=== PATIENT | female | born 1965 | race Caucasian/White ===

== ENCOUNTER 2020-02-19 06:41 | Outpatient (CLI) | payer OTHER, SELFPAY ==
[2020-02-19 08:03] LABS: Free T4 Free Thyroxine 1.43 ng/mL (0.78-2.19)
[2020-02-19 08:58] LABS: Thyroid Stimulating Hormone 0.175 uIU/mL (0.465-4.680); Total Triiodothyronine (T3) 1.04 NG/ML (0.97-1.69)
[2020-02-22 11:04] LABS: Vitamin D 1,25 (OH)2 Total 72 pg/mL (18-72); Vitamin D2 1,25 (OH)2 26 pg/mL; Vitamin D3 1,25 (OH)2 46 pg/mL
== END 2020-02-19 06:42 | disposition home or self-care (01) ==
PROVIDERS: PCP Family Medicine; Visit Provider Family Medicine
DX: E04.9 Nontoxic goiter, unspecified (principal); E55.9 Vitamin D deficiency, unspecified; E03.9 Hypothyroidism, unspecified
CPT/HCPCS: 36415; 82652; 84439; 84443; 84480

== ENCOUNTER 2020-11-28 07:14 | Outpatient (CLI) | payer OTHER, SELFPAY ==
[2020-11-28 07:37] LABS: Basophils Percent Auto 0.5 % (0.2-1.2); Eosinophils Absolute Auto 0.1 K/mm3 (0-0.3); Eosinophils Percent Auto 0.9 % (0-4.4); Hematocrit 42.1 % (37.0-47.0); Hemoglobin 13.8 g/dL (12.0-15.0); Immature Granulocyte Absolute 0.02 K/mm3 (0.00-0.031); Immature Granulocyte Percent A 0.3 % (0-0.5); Lymphocytes Absolute Auto 3.54 K/mm3 (0.9-3.2); Lymphocytes Percent Auto 46.8 % (18.3-44.2); Mean Corpuscular HGB Conc 32.8 g/dl (32-36); Mean Corpuscular Hemoglobin 30.1 pg (26-34); Mean Corpuscular Volume 91.9 fl (80-100); Mean Platelet Volume 8.8 fl (7.4-10.4); Monocytes Absolute Auto 0.6 K/mm3 (0.1-0.6); Monocytes Percent Auto 8.1 % (2.6-8.5); Neutrophils Absolute Auto 3.3 K/mm3 (1.3-6.7); Neutrophils Percent Auto 43.4 % (45.5-73.1); Platelet Count Result 268 k/mm3 (150-375); Red Blood Count 4.58 M/mm3 (4.2-5.4); Red Cell Distribution Width 12.8 % (11.5-14.5); White Blood Count 7.6 K/mm3 (4.5-10.0)
[2020-11-28 07:45] LABS: Alanine Aminotransferase 10 U/L (4-35); Albumin Level 4.2 g/dL (3.5-5.1); Alkaline Phosphatase 58 U/L (38-126); Anion Gap 3 mmol/L (8-16); Aspartate Amino Transferase 21 U/L (14-36); Bilirubin,Total 0.5 mg/dL (0.2-1.3); Blood Urea Nitrogen 14 mg/dL (7-17); Calcium 9.4 mg/dL (8.4-10.2); Carbon Dioxide 33 mmol/L (22-30); Chloride 102 mmol/L (98-107); Cholesterol 167 mg/dL (0-200); Estimated Glomerular Filt Rate > 60; Glucose 104 mg/dL (65-105); HDL Direct 67 mg/dL; Potassium 4.2 mmol/L (3.4-5.0); Sodium 138 mmol/L (137-145); Triglycerides 73 mg/dL (<150)
[2020-11-28 07:56] LABS: LDL Cholesterol Direct 78 mg/dL
[2020-11-28 08:15] LABS: Thyroid Stimulating Hormone 0.389 uIU/mL (0.465-4.680); Total Triiodothyronine (T3) 0.99 NG/ML (0.97-1.69)
[2020-11-28 08:20] LABS: Free T4 Free Thyroxine 1.05 ng/mL (0.78-2.19)
[2020-11-30 23:33] LABS: Vitamin D 1,25 (OH)2 Total 44 pg/mL (18-72); Vitamin D2 1,25 (OH)2 <8 pg/mL; Vitamin D3 1,25 (OH)2 44 pg/mL
== END 2020-11-28 07:15 | disposition home or self-care (01) ==
PROVIDERS: PCP Family Medicine; Visit Provider Family Medicine
DX: Z13.220 Encounter for screening for lipoid disorders (principal); E03.9 Hypothyroidism, unspecified; E55.9 Vitamin D deficiency, unspecified; Z00.00 Encounter for general adult medical examination without abnormal findings
CPT/HCPCS: 36415; 80053; 80061; 82652; 84439; 84443; 84480; 85025

== ENCOUNTER 2020-12-27 17:12 | Outpatient (CLI) | payer OTHER, SELFPAY ==
--- NOTE | ~2020-12-27 | MM_ITS ---
EXAMINATION: MM screening jose BI w anthony HISTORY: Screening TECHNIQUE: Craniocaudal and mediolateral oblique 3-D tomosynthesis images were obtained and synthetic 2-D images were generated. CAD analysis was submitted and interpreted. COMPARISON: Comparison to multiple prior studies sequentially, with oldest reviewed study dated 11/2010. BREAST PARENCHYMAL COMPOSITION: Breast composed of scattered areas of fibroglandular density FINDINGS: There are bilateral breast asymmetries medial aspect of both breasts which were not definit waylon seen on prior examinations. There are no suspicious calcifications. IMPRESSION: 1. Bilateral breast asymmetries. 2. Additional mammographic views and possible breast ultrasound are recommended. BI-RADS Category 0: Incomplete: Needs additional imaging evaluation. Reviewed, dictated and finalized at location A. IMPRESSION: 1. Bilateral breast asymmetries. 2. Additional mammographic views and possible breast ultrasound are recommended . BI-RADS Category 0: Incomplete: Needs additional imaging evaluation.
== END 2020-12-27 17:13 | disposition home or self-care (01) ==
LOC: ANHIMG 17:13
PROVIDERS: PCP Family Medicine; Visit Provider Family Medicine
DX: Z12.31 Encounter for screening mammogram for malignant neoplasm of breast (principal); R92.8 Other abnormal and inconclusive findings on diagnostic imaging of breast
CPT/HCPCS: 77063; 77067

== ENCOUNTER 2021-01-19 11:21 | Outpatient (CLI) | payer OTHER, SELFPAY ==
--- NOTE | ~2021-01-19 | MMUS_ITS ---
EXAMINATION: MM diagnostic mammo BI, US breast BI complete HISTORY: Bilateral mammographic asymmetries on 12/27/2020 screening mammogram examination TECHNIQUE: Additional 3-D tomosynthesis images of both breasts were performed and synthetic 2-D image s were generated. CAD analysis was submitted and interpreted. High resolution bilateral complete dennys st ultrasound was performed. COMPARISON: 12/27/2020 bilateral digital screening mammogram FINDINGS: MAMMOGRAPHIC FINDINGS: No definite suspicious reproducible mass or any architectural distortion, malignant calcification, sk in thickening or retraction is evident. ULTRASOUND: There is no evidence of focal abnormal solid or cystic lesion or suspicious shadowing of either breas t. IMPRESSION: 1. No mammographic evidence of malignancy 2. Routine mammographic screening is recommended. BI-RADS Category 1: Negative Reviewed, dictated and finalized at location A. IMPRESSION: 1. No mammographic evidence of malignancy 2. Routine mammographic screening is recommended. BI-RADS Category 1: Negative
== END 2021-01-19 11:22 | disposition home or self-care (01) ==
LOC: ANHIMG 11:23
PROVIDERS: PCP Family Medicine; Visit Provider Physician Assistant
DX: R92.8 Other abnormal and inconclusive findings on diagnostic imaging of breast (principal)
CPT/HCPCS: 76641; 77066

== ENCOUNTER 2021-02-23 09:39 | Outpatient (CLI) | payer OTHER, SELFPAY ==
[2021-02-23 10:57] LABS: Total Triiodothyronine (T3) 0.78 NG/ML (0.97-1.69)
== END 2021-02-23 09:40 | disposition home or self-care (01) ==
PROVIDERS: PCP Family Medicine; Visit Provider Family Medicine
DX: E03.9 Hypothyroidism, unspecified (principal)
CPT/HCPCS: 36415; 84439; 84443; 84480

== ENCOUNTER 2022-02-16 06:59 | Outpatient (CLI) | payer OTHER, SELFPAY ==
[2022-02-16 07:22] LABS: Basophils Percent Auto 0.3 % (0.2-1.2); Eosinophils Absolute Auto 0.1 K/mm3 (0-0.3); Hematocrit 40.5 % (37.0-47.0); Hemoglobin 13.4 g/dL (12.0-15.0); Immature Granulocyte Absolute 0.02 K/mm3 (0.00-0.031); Immature Granulocyte Percent A 0.3 % (0-0.5); Lymphocytes Absolute Auto 2.91 K/mm3 (0.9-3.2); Lymphocytes Percent Auto 47.3 % (18.3-44.2); Mean Corpuscular HGB Conc 33.1 g/dl (32-36); Mean Corpuscular Hemoglobin 30.5 pg (26-34); Mean Platelet Volume 9.1 fl (7.4-10.4); Monocytes Absolute Auto 0.6 K/mm3 (0.1-0.6); Monocytes Percent Auto 9.1 % (2.6-8.5); Neutrophils Absolute Auto 2.6 K/mm3 (1.3-6.7); Platelet Count Result 259 k/mm3 (150-375); Red Cell Distribution Width 12.9 % (11.5-14.5); White Blood Count 6.2 K/mm3 (4.5-10.0)
[2022-02-16 07:32] LABS: Alanine Aminotransferase 10 U/L (4-35); Albumin Level 4.2 g/dL (3.5-5.1); Alkaline Phosphatase 57 U/L (38-126); Anion Gap 4 mmol/L (8-16); Aspartate Amino Transferase 21 U/L (14-36); Bilirubin,Total 0.6 mg/dL (0.2-1.3); Blood Urea Nitrogen 12 mg/dL (7-17); Calcium 8.8 mg/dL (8.4-10.2); Carbon Dioxide 30 mmol/L (22-30); Chloride 105 mmol/L (98-107); Cholesterol 171 mg/dL (0-200); Estimated Glomerular Filt Rate > 60; Glucose 97 mg/dL (65-110); HDL Direct 67 mg/dL; Potassium 4.2 mmol/L (3.4-5.0); Sodium 139 mmol/L (137-145); Triglycerides 75 mg/dL (<150)
[2022-02-16 07:43] LABS: LDL Cholesterol Direct 72 mg/dL
[2022-02-16 08:03] LABS: Thyroid Stimulating Hormone 0.129 uIU/mL (0.465-4.680); Total Triiodothyronine (T3) 0.98 NG/ML (0.97-1.69)
[2022-02-16 08:05] LABS: Erythrocyte Sedimentation Rate 13 mm/hr (0-20)
[2022-02-16 08:19] LABS: Free T4 Free Thyroxine 0.99 ng/mL (0.78-2.19)
[2022-02-20 15:00] LABS: Vitamin D 1,25 (OH)2 Total 40 pg/mL (18-72); Vitamin D2 1,25 (OH)2 <8 pg/mL; Vitamin D3 1,25 (OH)2 40 pg/mL
== END 2022-02-16 07:00 | disposition home or self-care (01) ==
LOC: ANHLAB 07:01
PROVIDERS: PCP Family Medicine; Visit Provider Family Medicine
DX: Z00.00 Encounter for general adult medical examination without abnormal findings (principal); E55.9 Vitamin D deficiency, unspecified; E78.2 Mixed hyperlipidemia; E03.9 Hypothyroidism, unspecified; G44.009 Cluster headache syndrome, unspecified, not intractable
CPT/HCPCS: 36415; 80053; 80061; 82652; 84439; 84443; 84480; 85025; 85652

== ENCOUNTER 2022-06-11 07:45 | Outpatient (CLI) | payer OTHER, SELFPAY ==
--- NOTE | ~2022-06-11 | XR_ITS ---
EXAMINATION: XR foot LT 2V INDICATION: Left foot pain TECHNIQUE: Two views of the left foot are obtained. COMPARISON: None available FINDINGS: There is mild osseous irregularity at the lateral base of the fifth metatarsal. Heterotopic ossification of unclear origin projects lateral to the cuboid. There is moderate osteoarthritis of m ultiple interphalangeal joints. Dorsal and plantar calcaneal enthesophytes are noted. The soft tissue s are unremarkable. There is mild osteoarthritis of the midfoot. IMPRESSION: 1. Mild osseous irregularity at the lateral base of the fifth metatarsal and heterotopic ossification projecting lateral to the cuboid of unclear origin. Findings could reflect subacute fractures. Reviewed, dictated and finalized at location A. IMPRESSION: 1. Mild osseous irregularity at the lateral base of the fifth metatarsal and he terotopic ossification projecting lateral to the cuboid of unclear origin. Find ings could reflect subacute fractures.
== END 2022-06-11 07:46 | disposition home or self-care (01) ==
LOC: ANHIMG 07:48
PROVIDERS: PCP Family Medicine; Visit Provider Family Medicine
DX: M79.672 Pain in left foot (principal); M89.9 Disorder of bone, unspecified
CPT/HCPCS: 73620

== ENCOUNTER 2022-06-21 06:47 | Outpatient (CLI) | payer OTHER, SELFPAY ==
--- NOTE | ~2022-06-21 | MR_ITS ---
EXAMINATION: MR foot LT wo con DATE: 06/21/2022 07:29 INDICATION: Lateral left foot pain TECHNIQUE: Magnetic resonance imaging (MRI) of the foot excluding the toes was performed without intr avenous contrast. Sequences included sagittal T1-weighted FSE, sagittal fluid sensitive FSE STIR, cor onal PD-weighted FS FSE, coronal T1-weighted FSE, axial PD-weighted FS FSE, and axial PD-weighted FSE . COMPARISON: Left foot radiographs dated 06/11/2022 FINDINGS: Medial ankle ligaments: Deep and superficial deltoid ligaments as well as the spring ligament are normal. Lateral ankle ligaments: The anterior and posterior inferior tibiofibular ligaments are normal. Attenuation of the anterior ta lofibular ligament without surrounding edema consistent with sequela of chronic sprain. The calcaneof ibular and posterior talofibular ligaments are normal. There are erosions versus subarticular cystic changes at the posterior margin of the talofibular articulation and footplates of the normal-appearin g posterior talofibular ligament. The calcaneofibular ligament is normal. Tendons: Small Achilles calcaneal enthesophyte at the calcaneal insertion of the normal Achilles tendon. The p eroneus longus and brevis tendons are normal. Normal osseous peronei accounting for the small ossific densities noted lateral to the cuboid on the prior radiographs. Accessory peroneus quartus muscle be lly with direct muscular attachment along the lateral margin of the calcaneus posterior to the perone al trochlea. The tibialis anterior and extensor hallucis longus and extensor digitorum longus tendons are normal. The tibialis posterior, flexor digitorum longus and flexor hallucis longus tendons are n ormal. Plantar fascia: Thickening and mild increased signal of the proximal plantar aponeurosis with moderate-sized plantar calcaneal spur at the calcaneal origin but without without surrounding edema consistent with chronic enthesopathy without tear. Bones/other: Bone alignment is normal. No stress injury, fracture or pathologic marrow replacing process. Moderate osteoarthritis at the second tarsal metatarsal joint with mild subarticular edema-like signal change along the dorsal margin of both articular surfaces. Additional mild osteoarthritis at the ankle and at a few of the remaining tarsal metatarsal joints. Additional small enthesophytes at the lateral mar gin of the fifth metatarsal extending from the cortical irregularity noted on the prior radiographs. Lisfranc ligament complex is normal. Fluid: Physiologic amount fluid in the joint spaces. No tenosynovitis, bursitis or other abnormal fluid ros ections. IMPRESSION: 1. Polyarticular osteoarthritis, moderate at the second tarsal metatarsal joint and mild at the ankle and a few additional tarsal metatarsal joints. No acute osseous abnormality. 2. Attenuation of the anterior talofibular ligament without surrounding edema consistent with likely sequela of chronic sprain/partial tear. 3. Nonspecific mild cystic change versus chronic erosions at the posterior tibial surfaces of the gaby ofibular articulation and the footplates of the posterior talofibular ligament which could be related to either osteoarthritis, inflammatory process such as gout or sequela of old sprain. 4. Chronic plantar bursitis with moderate-sized plantar calcaneal spur. Reviewed, dictated and finalized at location A. IMPRESSION: 1. Polyarticular osteoarthritis, moderate at the second tarsal metatarsal joint and mild at the ankle and a few additional tarsal metatarsal joints. No acute osseous abnormality. 2. Attenuation of the anterior talofibular ligament without surrounding edema c onsistent with likely sequela of chronic sprain/partial tear. 3. Non
== END 2022-06-21 06:48 | disposition home or self-care (01) ==
PROVIDERS: PCP Family Medicine; Visit Provider Family Medicine
DX: R93.7 Abnormal findings on diagnostic imaging of other parts of musculoskeletal system (principal); M19.072 Primary osteoarthritis, left ankle and foot; M89.9 Disorder of bone, unspecified; M71.572 Other bursitis, not elsewhere classified, left ankle and foot; M77.32 Calcaneal spur, left foot
CPT/HCPCS: 73718

== ENCOUNTER 2022-06-28 09:13 | Outpatient (CLI) | payer OTHER, SELFPAY ==
[2022-06-28 11:24] LABS: Free T4 Free Thyroxine 0.98 ng/mL (0.78-2.19)
[2022-06-28 11:33] LABS: Total Triiodothyronine (T3) 1.07 NG/ML (0.97-1.69)
== END 2022-06-28 09:14 | disposition home or self-care (01) ==
LOC: ANHLAB 09:15
PROVIDERS: PCP Family Medicine; Visit Provider Family Medicine
DX: E03.9 Hypothyroidism, unspecified (principal)
CPT/HCPCS: 36415; 84439; 84443; 84480

== ENCOUNTER 2023-02-08 07:15 | Outpatient (CLI) | payer OTHER, SELFPAY ==
[2023-02-08 08:40] LABS: Basophils Percent Auto 0.3 % (0.2-1.2); Eosinophils Absolute Auto 0.1 K/mm3 (0-0.3); Eosinophils Percent Auto 1.2 % (0-4.4); Hematocrit 42.4 % (37.0-47.0); Hemoglobin 13.7 g/dL (12.0-15.0); Immature Granulocyte Absolute 0.02 K/mm3 (0.00-0.031); Immature Granulocyte Percent A 0.3 % (0-0.5); Lymphocytes Absolute Auto 2.65 K/mm3 (0.9-3.2); Lymphocytes Percent Auto 38.9 % (18.3-44.2); Mean Corpuscular HGB Conc 32.3 g/dl (32-36); Mean Corpuscular Hemoglobin 30.4 pg (26-34); Mean Corpuscular Volume 94.2 fl (80-100); Mean Platelet Volume 9.5 fl (7.4-10.4); Monocytes Absolute Auto 0.6 K/mm3 (0.1-0.6); Monocytes Percent Auto 8.2 % (2.6-8.5); Neutrophils Absolute Auto 3.5 K/mm3 (1.3-6.7); Neutrophils Percent Auto 51.1 % (45.5-73.1); Platelet Count Result 269 k/mm3 (150-375); Red Cell Distribution Width 12.8 % (11.5-14.5); White Blood Count 6.8 K/mm3 (4.5-10.0)
[2023-02-08 08:42] LABS: Alanine Aminotransferase 14 U/L (6-35); Albumin Level 4.6 g/dL (3.5-5.1); Alkaline Phosphatase 68 U/L (38-126); Anion Gap 5 mmol/L (8-16); Aspartate Amino Transferase 20 U/L (14-36); Bilirubin,Total 0.6 mg/dL (0.2-1.3); Blood Urea Nitrogen 18 mg/dL (7-17); Calcium 9.2 mg/dL (8.4-10.2); Carbon Dioxide 31 mmol/L (22-30); Chloride 102 mmol/L (98-107); Cholesterol 176 mg/dL (0-200); Estimated Glomerular Filt Rate > 60; Glucose 97 mg/dL (65-110); HDL Direct 70 mg/dL; Potassium 4.5 mmol/L (3.4-5.0); Sodium 138 mmol/L (137-145); Triglycerides 89 mg/dL (<150)
[2023-02-08 08:49] LABS: LDL Cholesterol Direct 81 mg/dL
[2023-02-08 09:08] LABS: Thyroid Stimulating Hormone 0.104 uIU/mL (0.465-4.680)
[2023-02-08 09:10] LABS: Total Triiodothyronine (T3) 1.07 NG/ML (0.97-1.69)
[2023-02-08 10:11] LABS: Free T4 Free Thyroxine 1.01 ng/mL (0.78-2.19)
[2023-02-14 10:41] LABS: Vitamin D 1,25 (OH)2 Total 29 pg/mL (18-72); Vitamin D2 1,25 (OH)2 <8 pg/mL; Vitamin D3 1,25 (OH)2 29 pg/mL
== END 2023-02-08 07:16 | disposition home or self-care (01) ==
LOC: ANHLAB 07:16
PROVIDERS: PCP Family Medicine; Visit Provider Family Medicine
DX: Z00.00 Encounter for general adult medical examination without abnormal findings (principal); E55.9 Vitamin D deficiency, unspecified; E53.8 Deficiency of other specified B group vitamins; E03.9 Hypothyroidism, unspecified; Z13.220 Encounter for screening for lipoid disorders; E78.2 Mixed hyperlipidemia
CPT/HCPCS: 36415; 80053; 80061; 82607; 82652; 84439; 84443; 84480; 85025

== ENCOUNTER 2023-07-16 07:18 | Outpatient (CLI) | payer OTHER, SELFPAY ==
[2023-07-16 08:03] LABS: Alanine Aminotransferase 24 U/L (6-35); Albumin Level 4.1 g/dL (3.5-5.1); Alkaline Phosphatase 70 U/L (38-126); Anion Gap 5 mmol/L (8-16); Aspartate Amino Transferase 29 U/L (14-36); Bilirubin,Total 0.8 mg/dL (0.2-1.3); Blood Urea Nitrogen 11 mg/dL (7-17); Calcium 8.7 mg/dL (8.4-10.2); Carbon Dioxide 27 mmol/L (22-30); Chloride 104 mmol/L (98-107); Estimated Glomerular Filt Rate > 60; Glucose 100 mg/dL (65-110); Sodium 136 mmol/L (137-145)
[2023-07-16 08:34] LABS: Thyroid Stimulating Hormone 0.219 uIU/mL (0.465-4.680); Total Triiodothyronine (T3) 1.07 NG/ML (0.97-1.69)
[2023-07-16 08:43] LABS: Free T4 Free Thyroxine 0.93 ng/mL (0.78-2.19)
[2023-07-19 10:00] LABS: ANA Cascade Screen Negative (Negative)
[2023-07-19 22:59] LABS: Vitamin D 1,25 (OH)2 Total 43 pg/mL (18-72); Vitamin D2 1,25 (OH)2 <8 pg/mL; Vitamin D3 1,25 (OH)2 43 pg/mL
== END 2023-07-16 07:19 | disposition home or self-care (01) ==
PROVIDERS: PCP Family Medicine; Visit Provider Family Medicine
DX: E03.9 Hypothyroidism, unspecified (principal); G44.009 Cluster headache syndrome, unspecified, not intractable; R79.89 Other specified abnormal findings of blood chemistry; M47.27 Other spondylosis with radiculopathy, lumbosacral region
CPT/HCPCS: 36415; 80053; 82652; 84439; 84443; 84480; 86038

== ENCOUNTER 2023-09-27 14:23 | Outpatient (CLI) | payer OTHER, SELFPAY ==
--- NOTE | ~2023-09-27 | XR_ITS ---
EXAMINATION: XR foot LT min 3V DATE: 09/27/2023 14:39 INDICATION: Left foot pain TECHNIQUE: Dorsoplantar, lateral, and 2 oblique views of the left foot were obtained. COMPARISON: 06/11/2022 FINDINGS: Bone alignment is normal. There is no acute fracture. A chronic heterotopic ossification pr ojects lateral to the cuboid. There is moderate osteoarthritis of multiple interphalangeal joints. Do rsal and plantar calcaneal enthesophytes are noted. There is mild osteoarthritis of the midfoot. IMPRESSION: 1. No acute osseous abnormality. Reviewed, dictated and finalized at location B. [employer]AT [employer]
== END 2023-09-27 14:24 | disposition home or self-care (01) ==
LOC: ANHIMG 14:25
PROVIDERS: PCP Family Medicine; Visit Provider Family Medicine
DX: M25.572 Pain in left ankle and joints of left foot (principal)
CPT/HCPCS: 73630

== ENCOUNTER 2024-04-27 07:10 | Outpatient (CLI) | payer OTHER, SELFPAY ==
[2024-04-27 07:51] LABS: Alanine Aminotransferase 14 U/L (6-35); Albumin Level 4.1 g/dL (3.5-5.1); Alkaline Phosphatase 74 U/L (38-126); Anion Gap 6 mmol/L (4-12); Aspartate Amino Transferase 22 U/L (14-36); Basophils Percent Auto 0.5 % (0.2-1.2); Bilirubin,Total 0.4 mg/dL (0.2-1.3); Blood Urea Nitrogen 12 mg/dL (7-17); Calcium 8.9 mg/dL (8.4-10.2); Carbon Dioxide 30 mmol/L (22-30); Chloride 102 mmol/L (98-107); Cholesterol 160 mg/dL (0-200); Eosinophils Absolute Auto 0.1 K/mm3 (0-0.3); Eosinophils Percent Auto 1.4 % (0-4.4); Estimated Glomerular Filt Rate > 60; Glucose 97 mg/dL (65-110); HDL Direct 71 mg/dL; Hematocrit 40.8 % (37.0-47.0); Hemoglobin 12.9 g/dL (12.0-15.0); Immature Granulocyte Absolute 0.02 K/mm3 (0.00-0.031); Immature Granulocyte Percent A 0.3 % (0-0.5); Lymphocytes Absolute Auto 3.11 K/mm3 (0.9-3.2); Lymphocytes Percent Auto 49.7 % (18.3-44.2); Mean Corpuscular HGB Conc 31.6 g/dl (32-36); Mean Corpuscular Hemoglobin 29.7 pg (26-34); Mean Platelet Volume 9.2 fl (7.4-10.4); Monocytes Absolute Auto 0.5 K/mm3 (0.1-0.6); Neutrophils Absolute Auto 2.5 K/mm3 (1.3-6.7); Neutrophils Percent Auto 40.1 % (45.5-73.1); Platelet Count Result 238 k/mm3 (150-375); Potassium 4.4 mmol/L (3.4-5.0); Red Blood Count 4.34 M/mm3 (4.2-5.4); Sodium 138 mmol/L (137-145); Triglycerides 79 mg/dL (<150); White Blood Count 6.3 K/mm3 (4.5-10.0)
[2024-04-27 08:02] LABS: LDL Cholesterol Direct 77 mg/dL
[2024-04-27 08:21] LABS: Total Triiodothyronine (T3) 1.12 NG/ML (0.97-1.69)
[2024-04-27 08:58] LABS: Hemoglobin A1C 5.7 % (<5.7)
[2024-04-27 09:19] LABS: Free T4 Free Thyroxine 0.91 ng/mL (0.78-2.19)
[2024-04-29 13:33] LABS: Vitamin D 1,25 (OH)2 Total 40 pg/mL (18-72); Vitamin D2 1,25 (OH)2 8 pg/mL; Vitamin D3 1,25 (OH)2 32 pg/mL
== END 2024-04-27 07:11 | disposition home or self-care (01) ==
LOC: ANHLAB 07:12
PROVIDERS: PCP Family Medicine; Visit Provider Family Medicine
DX: Z13.220 Encounter for screening for lipoid disorders (principal); R73.9 Hyperglycemia, unspecified; R53.82 Chronic fatigue, unspecified; E53.8 Deficiency of other specified B group vitamins; E03.9 Hypothyroidism, unspecified; R79.89 Other specified abnormal findings of blood chemistry
CPT/HCPCS: 36415; 80053; 80061; 82607; 82652; 83036; 84439; 84443; 84480; 85025

== ENCOUNTER 2024-07-09 08:25 | Outpatient (CLI) | payer OTHER, SELFPAY ==
--- NOTE | ~2024-07-09 | MM_ITS ---
EXAMINATION: MM screening jose BI w anthony HISTORY: Screening TECHNIQUE: Craniocaudal and mediolateral oblique 3-D tomosynthesis images were obtained and synthetic 2-D images were generated. CAD analysis was submitted and interpreted. COMPARISON: Comparison to multiple prior studies sequentially, with oldest reviewed study dated 11/29. BREAST PARENCHYMAL COMPOSITION: Not dense: There are scattered areas of fibroglandular density. FINDINGS: There is no evidence of suspicious mass, calcification, or architectural distortion to sugg est malignancy in either breast. There has been no suspicious interval change. IMPRESSION: 1. No mammographic evidence of malignancy. 2. Recommend routine screening mammography in one year. BI-RADS Category 1: Negative Reviewed, dictated and finalized at location B.
--- NOTE | ~2024-07-09 | DEXA_ITS ---
Bone Density Report Name: MONA PURCELL Age: 58 Sex: Female Ethnicity: White Date of : 1965 Indication: postmenopausal; screening for osteoporosis; asthma or emphysema; hysterectomy; Referring Provider: SARITA BECERRIL Study: Bone densitometry was performed. Exam Date: July 09, 2024 Accession number: [id number] Bone Density: Region BMD T-score Z-score Classification AP Spine(L1-L4) 1.030 -0.2 1.3 Normal Femoral Neck (Left) 0.931 0.7 2.0 Normal Total Hip (Left) 1.078 1.1 2.1 Normal Femoral Neck (Right) 0.614 -2.1 -0.8 Osteopenia Total Hip (Right) 1.001 0.5 1.5 Normal Total Hip Mean 1.039 0.8 1.8 Normal World Health Organization criteria for BMD impression classify patients as: Normal (T-score at or above -1.0), Osteopenia (T-score between -1.0 and -2.5), or Osteoporosis (T-score at or below -2.5). 10-year Fracture Risk(1): Major Osteoporotic Fracture 8.7% Hip Fracture 1.1% Reported Risk Factors: [place] (), Neck BMD=0.614, BMI=39.0 (1) FRAX(R) Version 3.08. Fracture probability calculated for an untreated patient. Fracture probability may be lower if the patient has received treatment. Clinical Information Provided by Patient: Has used the following medications: biotin Has the following medical conditions: Asthma or Emphysema, Hysterectomy Patient maximum height was 64 Menopause Age: 38 No regular weight bearing exercise Drinks caffeinated beverages Onset of menses at age 10 Number of children 3 Impression: The patient has low bone mass, based on the Right Femoral Neck T-score. The patient has an estimated ten-year risk of hip fracture of 1.1% and an estimated ten-year risk of major fracture of 8.7%, based on the WHO FRAX algorithm. Discussion: BONE DENSITY IS LOW AT ONE OR MORE SKELETAL SITES. This patient's lowest T-score is low at one or more skeletal sites. It meets the World Health Organization's (WHO) criteria for ?low bone mass? (T-score between -1.0 and -2.5). The patient's 10-year risk of fracture as calculated by FRAX is less than the threshold where pharmacological therapy is recommended by the National Osteoporosis Foundation (NOF). However, all treatment decisions require clinical judgment and consideration of individual patient factors, including patient preferences, comorbidities, previous drug use, risk factors not captured in the FRAX model (e.g., frailty, falls, vitamin D deficiency, increased bone turnover, interval significant decline in bone density) and possible under or overestimation of fracture risk by FRAX. The patient should follow a healthful lifestyle (good nutrition with adequate calcium and vitamin D, and appropriate weight-bearing exercise). Follow-Up: Consider repeating this study in 2 to 3 years to reassess
== END 2024-07-09 08:26 | disposition home or self-care (01) ==
PROVIDERS: PCP Family Medicine; Visit Provider Family Medicine
DX: Z12.31 Encounter for screening mammogram for malignant neoplasm of breast (principal); M85.851 Other specified disorders of bone density and structure, right thigh; Z78.0 Asymptomatic menopausal state
CPT/HCPCS: 77063; 77067; 77080

== ENCOUNTER 2024-08-13 16:26 | Outpatient (CLI) | payer OTHER, SELFPAY ==
[2024-08-13 17:47] LABS: Free T4 Free Thyroxine 0.64 ng/mL (0.78-2.19)
[2024-08-13 18:01] LABS: Total Triiodothyronine (T3) 1.11 NG/ML (0.97-1.69)
== END 2024-08-13 16:27 | disposition home or self-care (01) ==
LOC: ANHLAB 16:28
PROVIDERS: PCP Family Medicine; Visit Provider Family Medicine
DX: E03.9 Hypothyroidism, unspecified (principal)
CPT/HCPCS: 36415; 84439; 84443; 84480

== ENCOUNTER 2024-11-06 06:40 | Outpatient (CLI) | payer OTHER, SELFPAY ==
--- NOTE | ~2024-11-06 | MR_ITS ---
EXAMINATION: MR pituitary wo/w con DATE: 11/06/2024 08:01 INDICATION: Hypothyroidism, unspecified. TECHNIQUE: Magnetic resonance imaging (MRI) of the brain and brainstem was performed without and with 20 mL MultiHance intravenous contrast. COMPARISON: None. FINDINGS: There are scattered areas of nonspecific increased T2-weighted signal intensity in the cere bral white matter, which is within normal limits for the patient's age. The pituitary is normal in si ze with height of 7 mm. There is no intracranial hemorrhage, acute infarction, or abnormal intracrani al mass lesion. The ventricles are normal in size. There is mild mucosal thickening in the paranasal sinuses. The orbits are normal. The mastoid air cells are normal. IMPRESSION: 1. Normal aging brain. Normal pituitary. Reviewed, dictated and finalized at location B. [employer]
--- NOTE | ~2024-11-06 | MR_ITS ---
MRI of the lumbar spine Clinical History: Spinal stenosis Technique: Axial T2-weighted images, and sagittal T1-weighted, T2-weighted, and T2 fat-sat images wer e acquired. Findings: There is no fracture or subluxation of the lumbar spine. Vertebral bodies maintain normal h eight and alignment. No bone marrow signal abnormality seen. At L1-L2, there is no disc bulge or herniation. There is moderate facet arthropathy. No central canal stenosis or neural foraminal narrowing. At L2-L3, there is no significant disc bulge or herniation. There is severe facet arthropathy. No fra nk central canal stenosis or neural foraminal narrowing. At L3-L4, there is mild diffuse disc bulge with advanced facet arthropathy, resulting in moderate spi nal canal stenosis/thecal sac compression. Neural foramina are preserved. At L4-L5, there is disc bulge and moderate facet arthropathy. No brian central canal stenosis. There is mild bilateral neural foraminal narrowing. At L5-S1, there is mild disc bulge with moderate to advanced facet arthropathy. No central canal sten osis. There is moderate left neural foraminal narrowing, and mild right neural foraminal narrowing. Paravertebral soft tissues are unremarkable. Impression: Moderate degenerative spondylosis, especially at L3-L4 and L5-S1. Reviewed, dictated and finalized at [facility]. HEDEMA THERAPIST Impression: Moderate degenerative spondylosis, especially at L3-L4 and L5-S1.
== END 2024-11-06 06:41 | disposition home or self-care (01) ==
PROVIDERS: PCP Family Medicine; Visit Provider Nurse Practitioner Adult Health
DX: M48.00 Spinal stenosis, site unspecified (principal); M48.061 Spinal stenosis, lumbar region without neurogenic claudication; M54.16 Radiculopathy, lumbar region; E03.9 Hypothyroidism, unspecified; M43.06 Spondylolysis, lumbar region
CPT/HCPCS: 70553; 72148; A9577

== ENCOUNTER 2024-11-17 07:21 | Outpatient (CLI) | payer OTHER, SELFPAY ==
[2024-11-17 08:33] LABS: Free T4 Free Thyroxine 0.77 ng/dL (0.78-2.19)
== END 2024-11-17 07:22 | disposition home or self-care (01) ==
LOC: ANHLAB 07:23
PROVIDERS: PCP Family Medicine; Visit Provider Family Medicine
DX: E03.9 Hypothyroidism, unspecified (principal)
CPT/HCPCS: 36415; 84439; 84443